=== PATIENT | female | born 1995 | race Caucasian/White ===

== ENCOUNTER 2021-10-23 20:32 | Emergency (ER) | payer OTHER, SELFPAY ==
[2021-10-23 21:03] VITALS: BP 159/88; PULSE 89; RESP 20; TEMP 36.7; O2SAT 100; BMI 31.1
[2021-10-23 21:23] LABS: Appearance Urine UA CLEAR; Bilirubin Urine UA NEGATIVE (NEGATIVE); Color Urine UA YELLOW; Glucose Urine UA NEGATIVE (Negative); Ketones Urine UA TRACE (NEGATIVE); Leukocyte Esterase Urine UA NEGATIVE (NEGATIVE); Nitrite Urine UA NEGATIVE (Negative); Occult Blood Urine UA NEGATIVE (Negative); Protein Urine UA NEGATIVE (Negative); Specific Gravity Urine UA 1.025 (1.000-1.035); Urobilinogen Urine UA 0.2 E.U./dL (0.2)
[2021-10-23 21:24] LABS: pH Urine UA 5.5 (4.5-8.0)
[2021-10-23 21:27] LABS: Pregnancy Test Urine Negative (Negative)
[2021-10-23 21:28] LABS: Add Manual Diff / Slide Review NO; Basophils Absolute Auto 100 /uL (0-100); Basophils Percent Auto 0.9 % (0-2); Eosinophils Absolute Auto 100 /uL (0-450); Eosinophils Percent Auto 1.6 % (2-4); Hematocrit 34.5 % (36-46); Hemoglobin 11.8 g/dL (12.0-16.0); Lymphocytes Absolute Auto 2600 /uL (1100-4500); Lymphocytes Percent Auto 27.4 % (25-40); Mean Corpuscular HGB Conc 34.2 % (30-36); Mean Corpuscular Volume 84.9 fL (80-100); Monocytes Absolute Auto 500 /uL (0-900); Monocytes Percent Auto 5.6 % (3-14); Neutrophils Absolute Auto 6100 /uL (1500-7000); Neutrophils Percent Auto 64.5 % (50-75); Platelet Count 239 X10^3/uL (150-400); Red Blood Cell Count 4.06 X10^6/uL (4.0-5.2); White Blood Cell Count 9.4 X10^3/uL (4.5-11.0)
[2021-10-23 21:32] LABS: Bacteria Urine None Seen; Mucus Urine 1+ (Negative); RBC Urine 0-1/HPF (0-5/HPF); Squamous Epithelial Cell Urine 1-5 /HPF (0-5/HPF); WBC Urine 0-1/HPF (0-5/HPF)
[2021-10-23 21:33] LABS: Alanine Aminotransferase 12 IU/L (<35); Albumin 4.6 g/dL (3.5-5.0); Albumin Globulin Ratio 1.6 (1.0-2.8); Alkaline Phosphatase 71 U/L (38-126); Aspartate Aminotransferase 23 IU/L (14-36); BUN Creatinine Ratio 14.1 (6-22); Bilirubin Total 0.3 mg/dL (0.2-1.3); Blood Urea Nitrogen 10 mg/dL (7-17); Calcium 9.4 mg/dL (8.4-10.2); Carbon Dioxide 27 mmol/L (22-32); Chloride 107 mmol/L (98-107); Culture Indicated Urine Cult Not Indicated; Estimated Glomerular Filt Rate > 60.0 mL/min (>60); Globulin 2.8 g/dL (1.7-4.1); Glucose 95 mg/dL (70-100); HEMOLYSIS < 15 (0-50); Lipase 91 U/L (23-300); Potassium 3.9 mmol/L (3.4-5.1); Sodium 141 mmol/L (137-145); Total Protein 7.4 g/dL (6.3-8.2)
--- NOTE | 2021-10-24 03:15 | DI.CT.S_ITS ---
PROCEDURE: CT ABDOMEN PELVIS W CON INDICATIONS: Right lower quadrant pain TECHNIQUE: After the administration of IV contrast, axial sections were acquired from the lung bases to the pubic symphysis. Coronal and sagittal reformats were performed. For radiation dose reduction, the following was used: automated exposure control, adjustment of mA and/or kV according to patient size. COMPARISON: None. FINDINGS: Image quality: Excellent. Lung bases: There is minimal dependent atelectasis. Heart: Heart is normal in size. ABDOMEN: Liver: No mass lesion. Gallbladder: Within normal limits without gallstones. Biliary ducts: No biliary ductal dilatation. Pancreas: Unremarkable. Spleen: Normal in size. Adrenal Glands: No adrenal nodules. Kidneys and Ureters: No hydronephrosis. Stomach and Bowel: Stomach, small bowel loops, and colon are normal in caliber and wall thickness. No evidence of appendicitis. There is colonic diverticulosis without acute diverticulitis. Peritoneum: No abnormal intraperitoneal fluid. No free air. Ventral Wall: No hernia. Abdominal Nodes: No retroperitoneal or mesenteric adenopathy by size criteria. Vessels: Aorta and inferior vena cava are normal in size. PELVIS: Pelvic Organs: The uterus and ovaries appear within normal size limits for age with small bilateral ovarian follicles noted. Bladder: Unremarkable. Pelvic Nodes: No enlarged lymph nodes. Miscellaneous: No inguinal hernias are seen. Bones: Visualized osseous structures demonstrate no suspicious focal lesions. IMPRESSION: 1. No definite acute intra-abdominal abnormality. Specifically, no evidence of acute appendicitis. 2. Colonic diverticulosis without acute diverticulitis. Concordant with preliminary interpretation. Dictated by: Huan Crowley M.D. on 10/24/2021 at 7:45 Approved by: Huan Crowley M.D. on 10/24/2021 at 7:49
--- NOTE | 2021-10-24 03:16 | ED_ITS ---
HPI - Abdominal Pain General Chief Complaint: Abdominal Pain Stated Complaint: RIGHT SIDE LOWER PAIN Time Seen by Provider: 10/24/21 03:09 Source: patient Mode of arrival: Ambulatory Limitations: no limitations History of Present Illness HPI narrative: This is a 26-year-old female comes in with right lower quadrant pain that started about 2 hours prior to arrival. Patient states anterior she does not have any sensation in her flank. She denies any fevers or chills. She has had some nausea and vomiting. She states the pain was about 8/10 it is now decreased to more tolerable level of 5/10. She has had some diarrhea yesterday but no black or bloody stools. She had some discomfort in her abdomen when she urinates but denies dysuria urgency or frequency. She has not any vaginal bleeding or discharge. She does have a history of ovarian cyst. She states this might be similar but she is not sure. She has had prior ovarian cyst removed, as well as history endometriosis. She took some Tylenol prior to arrival. She denies allergies to drugs. Related Data Previous Rx's Medication Instructions Recorded meloxicam 7.5 mg tablet 7.5 mg PO BID PRN #10 tab 10/24/21 Allergies Allergy/AdvReac Type Severity Reaction Status Date / Time Penicillins Allergy Verified 10/24/21 03:24 Review of Systems Review of Systems ROS Unobtainable: All systems reviewed & are unremarkable except as noted in HPI and below Exam Narrative Exam Narrative: GENERAL: Alert and oriented x three, female in [id number] distress. HEENT: Head normocephalic, atraumatic, EOMI, pupils reactive, face symmetric, moist mucous membranes NECK: Supple, full range of motion CARDIOVASCULAR: Regular rate and rhythm without murmurs, rubs or gallops. RESPIRATORY: Breath sounds equal bilaterally, no wheezes rales or rhonchi. ABDOMEN: Soft, positive for right lower quadrant tenderness. Normoactive bowel sounds all 4 quadrants. No guarding, positive for rebound, no rigidity, no mass : No CVA tenderness EXTREMITIES: Normal range of motion. Neurovascularly intact NEUROLOGICAL: Cranial nerves II through XII grossly intact. Moving all extremities SKIN: Warm, dry, no petechiae, no rashes or lesions. Initial Vital Signs Initial Vital Signs: Vital Signs Temperature 98.1 F 10/23/21 21:03 Pulse Rate 89 10/23/21 21:03 Respiratory Rate 20 10/23/21 21:03 Blood Pressure 159/88 H 10/23/21 21:03 Pulse Oximetry 100 10/23/21 21:03 Course Orders Ordered: ED Orders 10/24/21 03:15 CT abdomen pelvis w con Stat Discontinued Medications Sodium Chloride (Normal Saline 0.9%) 1,000 mls @ 1,000 mls/hr IV BOLUS ONE Stop: 10/24/21 04:14 Last Infusion: 10/24/21 04:56 Dose: 0 mls/hr Documented by: Admin: 10/24/21 03:24 Dose: 1,000 mls/hr Documented by: CARMEL Ketorolac Tromethamine (Ketorolac 30 Mg/Ml Vial) 30 mg IV NOW ONE Stop: 10/24/21 03:16 Last Admin: 10/24/21 03:24 Dose: 30 mg Documented by: CARMEL Reevaluation(s) Reevaluation #1: Patient did have improvement with Toradol. We reviewed her findings today including her CT imaging. Discussed that she could have an ovarian cyst with her improvement in pain even before she had pain medication is vision for torsion is quite low. She defers having a pelvic ultrasound today and would like to return home Vital Signs Vital signs: Vital Signs - 8 hr 10/24/21 03:32 10/24/21 05:03 Temperature 97.8 F Pulse Rate 68 74 Respiratory Rate 16 16 Blood Pressure 114/71 114/58 L Pulse Oximetry 98 98 MDM - Abdominal Pain Lab Data Result diagrams: 10/23/21 21:14 10/23/21 21:14 Labs: Lab Results 10/23/21 10/23/21 10/23/21 Range/Units 21:14 21:14 21:14 WBC 9.4 (4.5-11.0) X10^3/uL RBC 4.06 (4.0-5.2) X10^6/uL Hgb 11.8 L (12.0-16.0) g/dL Hct 34.5 L (36-46) % MCV 84.9 (80-100) fL MCH 29.0 (26-34) PG MCHC 34.2 (30-36) % RDW 14.0 (11.6-14.8) % Plt Count 239 (150-400) X10^3/uL Neut % (Auto) 64.5 (50-75) % Lymph % (Auto) 27.4 (25-40) % [place] % (Auto) 5.6 (3-14) % Eos % (Auto) 1.6 L (2-4) % Baso % (Auto) 0.9 (0-2) % Neut # (Auto) 6100 (7366-9242) /uL Lymph # (Auto) 2600 (4165-4258) /uL [place] # (Auto) 500 (0-900) /uL Eos # (Auto) 100 (0-450) /uL Baso # (Auto) 100 (0-100) /uL Sodium (137-145) mmol/L Potassium (3.4-5.1) mmol/L Chloride (98-107) mmol/L Carbon Dioxide (22-32) mmol/L BUN (7-17) mg/dL Creatinine (0.52-1.04) mg/dL Estimated GFR (>60) mL/min BUN/Creatinine Ratio (6-22) Glucose (70-100) mg/dL Calcium (8.4-10.2) mg/dL Total Bilirubin (0.2-1.3) mg/dL AST (14-36) IU/L ALT (<35) IU/L Alkaline Phosphatase (38-126) U/L Total Protein (6.3-8.2) g/dL Albumin (3.5-5.0) g/dL Globulin (1.7-4.1) g/dL Albumin/Globulin Ratio (1.0-2.8) Lipase (23-300) U/L Urine Color Yellow Urine Appearance Clear Urine pH 5.5 (4.5-8.0) Ur Specific [place] 1.025 (1.000-1.035) Urine Protein Negative (Negative) Urine Glucose (UA) Negative (Negative) g/dL Urine Ketones Trace H (NEGATIVE) Urine Occult Blood Negative (Negative) Urine Nitrate Negative (Negative) Urine Bilirubin Negative (NEGATIVE) Urine Urobilinogen 0.2 (0.2) E.U./dL Ur Leukocyte Esterase Negative (NEGATIVE) Urine RBC 0-1/hpf (0-5/HPF) Urine WBC 0-1/hpf (0-5/HPF) Ur Squamous Epith Cells 1-5 /hpf (0-5/HPF) Urine Bacteria None seen (None) Urine Mucus 1+ H (Negative) Ur Culture Indicated? Cult not indicated Urine Test Negative (Negative) 10/23/21 Range/Units 21:14 WBC (4.5-11.0) X10^3/uL RBC (4.0-5.2) X10^6/uL Hgb (12.0-16.0) g/dL Hct (36-46) % MCV (80-100) fL MCH (26-34) PG MCHC (30-36) % RDW (11.6-14.8) % Plt Count (150-400) X10^3/uL Neut % (Auto) (50-75) % Lymph % (Auto) (25-40) % [place] % (Auto) (3-14) % Eos % (Auto) (2-4) % Baso % (Auto) (0-2) % Neut # (Auto) (8365-3676) /uL Lymph # (Auto) (2445-5035) /uL [place] # (Auto) (0-900) /uL Eos # (Auto) (0-450) /uL Baso # (Auto) (0-100) /uL Sodium 141 (137-145) mmol/L Potassium 3.9 (3.4-5.1) mmol/L Chloride 107 (98-107) mmol/L Carbon Dioxide 27 (22-32) mmol/L BUN 10 (7-17) mg/dL Creatinine 0.71 (0.52-1.04) mg/dL Estimated GFR > 60.0 (>60) mL/min BUN/Creatinine Ratio 14.1 (6-22) Glucose 95 (70-100) mg/dL Calcium 9.4 (8.4-10.2) mg/dL Total Bilirubin 0.3 (0.2-1.3) mg/dL AST 23 (14-36) IU/L ALT 12 (<35) IU/L Alkaline Phosphatase 71 (38-126) U/L Total Protein 7.4 (6.3-8.2) g/dL Albumin 4.6 (3.5-5.0) g/dL Globulin 2.8 (1.7-4.1) g/dL Albumin/Globulin Ratio 1.6 (1.0-2.8) Lipase 91 (23-300) U/L Urine Color Urine Appearance Urine pH (4.5-8.0) Ur Specific [place] (1.000-1.035) Urine Protein (Negative) Urine Glucose (UA) (Negative) g/dL Urine Ketones (NEGATIVE) Urine Occult Blood (Negative) Urine Nitrate (Negative) Urine Bilirubin (NEGATIVE) Urine Urobilinogen (0.2) E.U./dL Ur Leukocyte Esterase (NEGATIVE) Urine RBC (0-5/HPF) Urine WBC (0-5/HPF) Ur Squamous Epith Cells (0-5/HPF) Urine Bacteria (None) Urine Mucus (Negative) Ur Culture Indicated? Urine Test (Negative) Imaging Data CT scan - abdomen/pelvis: Radiologist's Impression: Rad read shows no evidence of colitis, diverticulitis, bowel obstruction, obstructive uropathy acute appendicitis. Trace free fluid within the pelvis. Follicular activity within bilateral ovaries. Uterus and adnexa are normal. Normal-appearing appendix. MDM Narrative Medical decision making narrative: This is a 26-year-old who comes in with acute right lower quadrant pain. Patient is tender on exam concerning for appendicitis and still has her appendi x. Labs reassuring. Urine does not show acute changes. CT abdomen pelvis shows no acute changes other than typical follicular changes. Of patients with improvement on exam even prior to having pain medication and feels much better. Discussed that. Cysts and ovarian torsion are on the differential but with her improvement she defers pelvic ultrasound which I think is appropriate but plan to have her return if any worsening or persistent symptoms for additional workup. Discharge Plan Departure Patient Disposition: Home Clinical Impression: Abdominal pain Instructions: DI for Abdominal Pain-Adult Activity Restrictions/Additional Instructions: Follow-up with your physician for recheck if your symptoms not improving. Your labs and imaging today are reassuring. You may continue take Tylenol and/or ibuprofen as needed for pain. Prescription sent to [facility] in [place]. Please return for fevers, rapidly worsening pain, passing out, persistent vomiting, black or bloody stools, difficulty with urination or other new or concerning symptoms. Prescriptions: New meloxicam 7.5 mg tablet 7.5 mg PO BID PRN (Reason: pain) Qty: 10 0RF
--- NOTE | 2021-10-24 03:18 | ED_ITS ---
HPI - Pediatric GI General Chief Complaint: Abdominal Pain Stated Complaint: RIGHT SIDE LOWER PAIN Time Seen by Provider: 10/24/21 03:09 Source: patient Mode of arrival: Ambulatory Limitations: no limitations History of Present Illness HPI narrative: This is a Related Data Previous Rx's Medication Instructions Recorded meloxicam 7.5 mg tablet 7.5 mg PO BID PRN #10 tab 10/24/21 Allergies Allergy/AdvReac Type Severity Reaction Status Date / Time Penicillins Allergy Verified 10/24/21 03:24 Pediatric Exam Initial Vital Signs Initial Vital Signs: Vital Signs Temperature 98.1 F 10/23/21 21:03 Pulse Rate 89 10/23/21 21:03 Respiratory Rate 20 10/23/21 21:03 Blood Pressure 159/88 H 10/23/21 21:03 Pulse Oximetry 100 10/23/21 21:03 Course Orders Ordered: ED Orders 10/23/21 21:14 Complete Blood Count AUTO DIFF Stat Comprehensive Metabolic Panel Stat Lipase Stat Test Urine Stat Urinalysis and Microscopic Stat 10/24/21 03:15 CT abdomen pelvis w con Stat Discontinued Medications Sodium Chloride (Normal Saline 0.9%) 1,000 mls @ 1,000 mls/hr IV BOLUS ONE Stop: 10/24/21 04:14 Last Admin: 10/24/21 03:24 Dose: 1,000 mls/hr Documented by: CARMEL Ketorolac Tromethamine (Ketorolac 30 Mg/Ml Vial) 30 mg IV NOW ONE Stop: 10/24/21 03:16 Last Admin: 10/24/21 03:24 Dose: 30 mg Documented by: CARMEL Vital Signs Vital signs: Vital Signs - 8 hr 10/23/21 21:03 10/24/21 03:32 Temperature 98.1 F Pulse Rate 89 68 Respiratory Rate 20 16 Blood Pressure 159/88 H 114/71 Pulse Oximetry 100 98 Medical Decision Making Lab Data Result diagrams: 10/23/21 21:14 10/23/21 21:14 Labs: Lab Results 10/23/21 10/23/21 10/23/21 Range/Units 21:14 21:14 21:14 WBC 9.4 (4.5-11.0) X10^3/uL RBC 4.06 (4.0-5.2) X10^6/uL Hgb 11.8 L (12.0-16.0) g/dL Hct 34.5 L (36-46) % MCV 84.9 (80-100) fL MCH 29.0 (26-34) PG MCHC 34.2 (30-36) % RDW 14.0 (11.6-14.8) % Plt Count 239 (150-400) X10^3/uL Neut % (Auto) 64.5 (50-75) % Lymph % (Auto) 27.4 (25-40) % [place] % (Auto) 5.6 (3-14) % Eos % (Auto) 1.6 L (2-4) % Baso % (Auto) 0.9 (0-2) % Neut # (Auto) 6100 (0580-8085) /uL Lymph # (Auto) 2600 (2775-8451) /uL [place] # (Auto) 500 (0-900) /uL Eos # (Auto) 100 (0-450) /uL Baso # (Auto) 100 (0-100) /uL Sodium (137-145) mmol/L Potassium (3.4-5.1) mmol/L Chloride (98-107) mmol/L Carbon Dioxide (22-32) mmol/L BUN (7-17) mg/dL Creatinine (0.52-1.04) mg/dL Estimated GFR (>60) mL/min BUN/Creatinine Ratio (6-22) Glucose (70-100) mg/dL Calcium (8.4-10.2) mg/dL Total Bilirubin (0.2-1.3) mg/dL AST (14-36) IU/L ALT (<35) IU/L Alkaline Phosphatase (38-126) U/L Total Protein (6.3-8.2) g/dL Albumin (3.5-5.0) g/dL Globulin (1.7-4.1) g/dL Albumin/Globulin Ratio (1.0-2.8) Lipase (23-300) U/L Urine Color Yellow Urine Appearance Clear Urine pH 5.5 (4.5-8.0) Ur Specific [place] 1.025 (1.000-1.035) Urine Protein Negative (Negative) Urine Glucose (UA) Negative (Negative) g/dL Urine Ketones Trace H (NEGATIVE) Urine Occult Blood Negative (Negative) Urine Nitrate Negative (Negative) Urine Bilirubin Negative (NEGATIVE) Urine Urobilinogen 0.2 (0.2) E.U./dL Ur Leukocyte Esterase Negative (NEGATIVE) Urine RBC 0-1/hpf (0-5/HPF) Urine WBC 0-1/hpf (0-5/HPF) Ur Squamous Epith Cells 1-5 /hpf (0-5/HPF) Urine Bacteria None seen (None) Urine Mucus 1+ H (Negative) Ur Culture Indicated? Cult not indicated Urine Test Negative (Negative) 10/23/21 Range/Units 21:14 WBC (4.5-11.0) X10^3/uL RBC (4.0-5.2) X10^6/uL Hgb (12.0-16.0) g/dL Hct (36-46) % MCV (80-100) fL MCH (26-34) PG MCHC (30-36) % RDW (11.6-14.8) % Plt Count (150-400) X10^3/uL Neut % (Auto) (50-75) % Lymph % (Auto) (25-40) % [place] % (Auto) (3-14) % Eos % (Auto) (2-4) % Baso % (Auto) (0-2) % Neut # (Auto) (8652-6831) /uL Lymph # (Auto) (1938-0957) /uL [place] # (Auto) (0-900) /uL Eos # (Auto) (0-450) /uL Baso # (Auto) (0-100) /uL Sodium 141 (137-145) mmol/L Potassium 3.9 (3.4-5.1) mmol/L Chloride 107 (98-107) mmol/L Carbon Dioxide 27 (22-32) mmol/L BUN 10 (7-17) mg/dL Creatinine 0.71 (0.52-1.04) mg/dL Estimated GFR > 60.0 (>60) mL/min BUN/Creatinine Ratio 14.1 (6-22) Glucose 95 (70-100) mg/dL Calcium 9.4 (8.4-10.2) mg/dL Total Bilirubin 0.3 (0.2-1.3) mg/dL AST 23 (14-36) IU/L ALT 12 (<35) IU/L Alkaline Phosphatase 71 (38-126) U/L Total Protein 7.4 (6.3-8.2) g/dL Albumin 4.6 (3.5-5.0) g/dL Globulin 2.8 (1.7-4.1) g/dL Albumin/Globulin Ratio 1.6 (1.0-2.8) Lipase 91 (23-300) U/L Urine Color Urine Appearance Urine pH (4.5-8.0) Ur Specific [place] (1.000-1.035) Urine Protein (Negative) Urine Glucose (UA) (Negative) g/dL Urine Ketones (NEGATIVE) Urine Occult Blood (Negative) Urine Nitrate (Negative) Urine Bilirubin (NEGATIVE) Urine Urobilinogen (0.2) E.U./dL Ur Leukocyte Esterase (NEGATIVE) Urine RBC (0-5/HPF) Urine WBC (0-5/HPF) Ur Squamous Epith Cells (0-5/HPF) Urine Bacteria (None) Urine Mucus (Negative) Ur Culture Indicated? Urine Test (Negative) Discharge Plan Departure Patient Disposition: Home Clinical Impression: Abdominal pain Instructions: DI for Abdominal Pain-Adult Activity Restrictions/Additional Instructions: Follow-up with your physician for recheck if your symptoms not improving. Your labs and imaging today are reassuring. You may continue take Tylenol and/or ibuprofen as needed for pain. Prescription sent to [facility]. Please return for fevers, rapidly worsening pain, passing out, persistent vomiting, black or bloody stools, difficulty with urination or other new or concerning symptoms. Prescriptions: New meloxicam 7.5 mg tablet 7.5 mg PO BID PRN (Reason: pain) Qty: 10 0RF
[2021-10-24] MEDS: SODIUM CHLORIDE 0.9% 1,000 ML 1000 ML IV (03:24)
[2021-10-24] MEDS: KETOROLAC 30 MG/ML VIAL IV (03:24)
[2021-10-24 03:32] VITALS: BP 114/71; PULSE 68; RESP 16; O2SAT 98
[2021-10-24 05:03] VITALS: BP 114/58; PULSE 74; RESP 16; TEMP 36.6; O2SAT 98
== END 2021-10-24 04:50 | disposition home or self-care (01) ==
PROVIDERS: Emergency Provider Emergency Medicine
DX: R10.31 Right lower quadrant pain (principal)
CPT/HCPCS: 74177; 80053; 81001; 81025; 83690; 85025; 96361; 96374; 99284; J1885; Q9967

== ENCOUNTER 2022-04-13 15:36 | Emergency (ER) | payer OTHER, SELFPAY ==
[2022-04-13 15:42] VITALS: BP 127/78; PULSE 87; RESP 18; TEMP 36.9; O2SAT 97; BMI 31.1
--- NOTE | 2022-04-13 16:46 | DI.US.S_ITS ---
PROCEDURE: US PELVIC COMPLETE INDICATIONS: in process, concern for right sided ovarian pain TECHNIQUE: Real-time scanning was performed of the pelvic organs, with image documentation. Additional endovaginal scanning was necessary due to incomplete visualization of the adnexal and endometrial structures by transabdominal scanning. COMPARISON: None. FINDINGS: Uterus: Uterus is anteverted and normal in size at 7.1 x 4.5 x 6.2 cm. The myometrium is homogeneous. No discrete uterine fibroid is seen. The endometrium measures 4.9 mm combined thickness. No intrauterine gestational sac is seen. No gross endometrial mass or fluid is noted. Ovaries: The right ovary measures 2.5 x 1.6 x 1.7 cm. The left ovary measures 3.8 x 1.2 x 2.2 cm. 2.2 x 1.2 x 0.9 cm hypoechoic structure within left ovary is seen without internal vascularity. Less than 12 follicles can be seen in each ovary. No adnexal masses are seen. Other: No pathologic free abdominal or pelvic fluid. IMPRESSION: 1. No intrauterine gestation is seen. No endometrial mass or fluid. 2. Possible corpus luteum within left ovary measures 2.2 x 1.2 x 0.9 cm in size. No solid appearing ovarian lesion. Normal appearing right ovary. We strive to produce accurate, complete, and clear reports of imaging services. To assist us in improving patient care, this report was composed using standard report templates and voice recognition software. Therefore, it may contain abnormal punctuation, insertions and/or omissions. Occasional wrong-word or sound-alike substitutions may occur. Though we review the report and make efforts to correct it, we do recommend that the report be read carefully in proper context to recognize any text inaccuracies. Dictated by: Stone Urbina M.D. on 04/13/2022 at 16:46 Approved by: Stone Urbina M.D. on 04/13/2022 at 16:49
[2022-04-13 16:49] LABS: Add Manual Diff / Slide Review NO; Basophils Absolute Auto 100 /uL (0-100); Eosinophils Absolute Auto 100 /uL (0-450); Eosinophils Percent Auto 0.9 % (2-4); Hematocrit 34.8 % (36-46); Hemoglobin 11.9 g/dL (12.0-16.0); Lymphocytes Absolute Auto 1500 /uL (1100-4500); Lymphocytes Percent Auto 16.6 % (25-40); Mean Corpuscular HGB Conc 34.3 % (30-36); Mean Corpuscular Hemoglobin 29.2 PG (26-34); Mean Corpuscular Volume 85.2 fL (80-100); Monocytes Absolute Auto 400 /uL (0-900); Monocytes Percent Auto 4.2 % (3-14); Neutrophils Absolute Auto 7100 /uL (1500-7000); Neutrophils Percent Auto 77.3 % (50-75); Platelet Count 221 X10^3/uL (150-400); Red Blood Cell Count 4.09 X10^6/uL (4.0-5.2); Red Cell Distribution Width 13.7 % (11.6-14.8); White Blood Cell Count 9.2 X10^3/uL (4.5-11.0)
[2022-04-13] MEDS: LACTATED RINGERS 1,000 ML 1000 ML IV (17:01)
[2022-04-13] MEDS: ACETAMINOPHEN 325 MG TABLET 975 MG PO (17:01)
[2022-04-13] MEDS: ONDANSETRON 4 MG/2 ML INJ IV (17:01)
[2022-04-13 17:02] LABS: Alanine Aminotransferase 14 IU/L (<35); Albumin 4.5 g/dL (3.5-5.0); Albumin Globulin Ratio 1.5 (1.0-2.8); Alkaline Phosphatase 57 U/L (38-126); Aspartate Aminotransferase 23 IU/L (14-36); BUN Creatinine Ratio 12.3 (6-22); Bilirubin Total 0.2 mg/dL (0.2-1.3); Blood Urea Nitrogen 9 mg/dL (7-17); Calcium 8.8 mg/dL (8.4-10.2); Carbon Dioxide 23 mmol/L (22-32); Chloride 106 mmol/L (98-107); Estimated Glomerular Filt Rate > 60 mL/min (>60); Glucose 89 mg/dL (70-100); HEMOLYSIS < 15 (0-50); Potassium 4.1 mmol/L (3.4-5.1); Sodium 138 mmol/L (137-145); Total Protein 7.5 g/dL (6.3-8.2)
--- NOTE | 2022-04-13 17:04 | ED.FEMALEGU ---
HPI - Female Genitourinary <SONG Kinney - Last Filed: 04/13/22 19:50> General Chief complaint: Urogenital-Female Stated complaint: Rt side pain, Vomiting Time Seen by Provider: 04/13/22 16:40 Source: patient Mode of arrival: Ambulatory History of Present Illness HPI Narrative: This is a 27-year-old female who is a who presents to the emergency department complaining of increased cramping and vaginal bleeding three days following taking the pill. Patient states that she electively to the pill three days ago for an unwanted which is approximately five weeks today. She states she has a history of depression and is currently in therapy for this and this would have compromised her progress. Patient is one year status post vaginal delivery without complications of her son. Patient states that she took one of two pills starting on the and the 2nd of two pills on the 11 of April, today she took Zofran at 0900 hours and ibuprofen 1000 mg at noon and still complains of nausea and pelvic cramping with vaginal bleeding. She states that she is having clots, she denies any weakness, lightheadedness or headache, denies any fever, states that her cramping is only on the right side and she was concerned about possible ectopic . Patient is a nonsmoker, she is active in the , she is , denies any abnormal vaginal discharge other than blood and denies any recent fever, vomiting, diarrhea or other symptom. She denies any dysuria or flank pain. Related Data Previous Rx's Medication Instructions Recorded meloxicam 7.5 mg tablet 7.5 mg PO BID PRN pain #10 tabs 10/24/21 hydrocodone 5 mg-acetaminophen 325 1 tab PO DAILY PRN pain #10 tabs 04/13/22 mg tablet ondansetron 4 mg disintegrating 4 mg PO Q8H #10 tabs 04/13/22 tablet Allergies Allergy/AdvReac Type Severity Reaction Status Date / Time Penicillins Allergy Verified 04/13/22 15:47 Review of Systems <SONG Kinney - Last Filed: 04/13/22 19:50> Review of Systems Narrative: General: denies fever, chills, malaise, sweats, fatigue Head/Neck: denies headache, neck pain, dizziness Eyes: denies visual changes, eye pain Cardio: denies chest pain, palpitations, edema Respiratory: denies dyspnea, cough, orthopnea GI: denies abdominal pain, nausea, vomiting, or diarrhea : denies dysuria, hematuria, urinary retention, frequency or incontinence [employer]: Vaginal bleeding which is not as heavy as it was yesterday, pelvic cramping MSK: denies joint pain, muscle weakness Skin: denies rash, itching, skin lesions or other Neuro: denies numbness, tingling Patient History <SONG Kinney - Last Filed: 04/13/22 19:50> Substance Use Type: does not use Exam <SONG Kinney - Last Filed: 04/13/22 19:50> Narrative Exam Narrative: Independently reviewed vitals signs and nursing notes. General: cooperative, comfortable, in no acute distress, well groomed Head: atraumatic, symmetrical facial expressions Neck: supple Eyes: equal round and reactive, EOMI, conjunctiva normal Nose: nares patent, no rhinorrhea Mouth/Throat: moist mucus membranes Cardiovascular: regular rate and rhythm, no peripheral edema, warm extremities no tachycardia, Respiratory: normal effort, able to speak in complete sentences, no audible wheezing, stridor, or rales. No retractions or tachypnea. GI: abdomen soft, nondistended, no masses, no exquisite tenderness with exam, without guarding or rebound. Mild tenderness over her right ovary to palpation, no other tenderness. MSK: moves all extremities, neurovascularly intact, no weakness, normal tone Skin: brisk capillary refill, no rash, no erythema, no pallor Neuro: normal speech and cognition, A&O x3 Psych: mental status is grossly normal, congruent mood, normal affect, pleasant and cooperative Initial Vital Signs Initial Vital Signs: Vital Signs Temperature 98.4 F 04/13/22 15:42 Pulse Rate 87 04/13/22 15:42 Respiratory Rate 18 04/13/22 15:42 Blood Pressure 127/78 04/13/22 15:42 Pulse Oximetry 97 04/13/22 15:42 Oxygen Delivery Method 04/13/22 15:42 <Slime Gallardo DO - Last Filed: 04/14/22 07:53> Initial Vital Signs Initial Vital Signs: Vital Signs Temperature 98.4 F 04/13/22 15:42 Pulse Rate 87 04/13/22 15:42 Respiratory Rate 18 04/13/22 15:42 Blood Pressure 127/78 04/13/22 15:42 Pulse Oximetry 97 04/13/22 15:42 Oxygen Delivery Method 04/13/22 15:42 Course <SONG Kinney - Last Filed: 04/13/22 19:50> Orders Ordered: Discontinued Medications Acetaminophen (Acetaminophen 325 Mg Tablet) 975 mg PO NOW ONE Stop: 04/13/22 16:47 Last Admin: 04/13/22 17:01 Dose: 975 mg Documented By: BS Lactated Ringer's (Lactated Ringers) 1,000 mls @ 1,000 mls/hr IV BOLUS ONE Stop: 04/13/22 17:45 Last Infusion: 04/13/22 19:24 Dose: 0 mls/hr Documented By: Admin: 04/13/22 17:01 Dose: 1,000 mls/hr Documented By: YVES Ondansetron HCl (Ondansetron 4 Mg/2 Ml Inj) 4 mg IV NOW ONE Stop: 04/13/22 16:47 Last Admin: 04/13/22 17:01 Dose: 4 mg Documented By: YVES Oxycodone HCl (Oxycodone Ir 5 Mg Tablet) 5 mg PO NOW ONE Stop: 04/13/22 18:21 Last Admin: 04/13/22 18:43 Dose: 5 mg Documented By: CTS Vital Signs Vital signs: Vital Signs - 8 hr 04/13/22 15:42 04/13/22 19:38 Temperature 98.4 F Pulse Rate 87 76 Respiratory Rate 18 16 Blood Pressure 127/78 136/74 Pulse Oximetry 97 Oxygen Delivery Method Room Air <Slime Gallardo DO - Last Filed: 04/14/22 07:53> Orders Ordered: Discontinued Medications Acetaminophen (Acetaminophen 325 Mg Tablet) 975 mg PO NOW ONE Stop: 04/13/22 16:47 Last Admin: 04/13/22 17:01 Dose: 975 mg Documented By: BS Lactated Ringer's (Lactated Ringers) 1,000 mls @ 1,000 mls/hr IV BOLUS ONE Stop: 04/13/22 17:45 Last Infusion: 04/13/22 19:24 Dose: 0 mls/hr Documented By: Admin: 04/13/22 17:01 Dose: 1,000 mls/hr Documented By: YVES Ondansetron HCl (Ondansetron 4 Mg/2 Ml Inj) 4 mg IV NOW ONE Stop: 04/13/22 16:47 Last Admin: 04/13/22 17:01 Dose: 4 mg Documented By: YVES Oxycodone HCl (Oxycodone Ir 5 Mg Tablet) 5 mg PO NOW ONE Stop: 04/13/22 18:21 Last Admin: 04/13/22 18:43 Dose: 5 mg Documented By: HECTOR Vital Signs Vital signs: Vital Signs - 8 hr 04/13/22 15:42 04/13/22 19:38 Temperature 98.4 F Pulse Rate 87 76 Respiratory Rate 18 16 Blood Pressure 127/78 136/74 Pulse Oximetry 97 Oxygen Delivery Method Room Air MDM - Female Genitourinary <Elissa Shaw [facility] - Last Filed: 04/13/22 19:50> Lab Data Result diagrams: 04/13/22 16:20 04/13/22 16:20 Labs: Lab Results 04/13/22 04/13/22 04/13/22 Range/Units 16:20 16:20 16:20 WBC 9.2 (4.5-11.0) X10^3/uL RBC 4.09 (4.0-5.2) X10^6/uL Hgb 11.9 L (12.0-16.0) g/dL Hct 34.8 L (36-46) % MCV 85.2 (80-100) fL MCH 29.2 (26-34) PG MCHC 34.3 (30-36) % RDW 13.7 (11.6-14.8) % Plt Count 221 (150-400) X10^3/uL Neut % (Auto) 77.3 H (50-75) % Lymph % (Auto) 16.6 L (25-40) % [place] % (Auto) 4.2 (3-14) % Eos % (Auto) 0.9 L (2-4) % Baso % (Auto) 1.0 (0-2) % Neut # (Auto) 7100 H (1279-2381) /uL Lymph # (Auto) 1500 (2678-4357) /uL [place] # (Auto) 400 (0-900) /uL Eos # (Auto) 100 (0-450) /uL Baso # (Auto) 100 (0-100) /uL Sodium 138 (137-145) mmol/L Potassium 4.1 (3.4-5.1) mmol/L Chloride 106 (98-107) mmol/L Carbon Dioxide 23 (22-32) mmol/L BUN 9 (7-17) mg/dL Creatinine 0.73 (0.52-1.04) mg/dL Estimated GFR > 60 (>60) mL/min BUN/Creatinine Ratio 12.3 (6-22) Glucose 89 (70-100) mg/dL Calcium 8.8 (8.4-10.2) mg/dL Magnesium (1.6-2.3) mg/dL Total Bilirubin 0.2 (0.2-1.3) mg/dL AST 23 (14-36) IU/L ALT 14 (<35) IU/L Alkaline Phosphatase 57 (38-126) U/L Total Protein 7.5 (6.3-8.2) g/dL Albumin 4.5 (3.5-5.0) g/dL Globulin 3.0 (1.7-4.1) g/dL Albumin/Globulin Ratio 1.5 (1.0-2.8) HCG, Quant 4234 mIU/mL Urine RBC (0-5/HPF) Urine WBC (0-5/HPF) Ur Squamous Epith Cells (0-5/HPF) Ur Transition Epith Cell (0-5/HPF) Urine Bacteria (None) Ur Culture Indicated? Micro UA Comment Blood Type Cancelled Antibody Screen 04/13/22 04/13/22 04/13/22 Range/Units 16:20 16:20 16:48 WBC (4.5-11.0) X10^3/uL RBC (4.0-5.2) X10^6/uL Hgb (12.0-16.0) g/dL Hct (36-46) % MCV (80-100) fL MCH (26-34) PG MCHC (30-36) % RDW (11.6-14.8) % Plt Count (150-400) X10^3/uL Neut % (Auto) (50-75) % Lymph % (Auto) (25-40) % [place] % (Auto) (3-14) % Eos % (Auto) (2-4) % Baso % (Auto) (0-2) % Neut # (Auto) (4815-7462) /uL Lymph # (Auto) (1142-1309) /uL [place] # (Auto) (0-900) /uL Eos # (Auto) (0-450) /uL Baso # (Auto) (0-100) /uL Sodium (137-145) mmol/L Potassium (3.4-5.1) mmol/L Chloride (98-107) mmol/L Carbon Dioxide (22-32) mmol/L BUN (7-17) mg/dL Creatinine (0.52-1.04) mg/dL Estimated GFR (>60) mL/min BUN/Creatinine Ratio (6-22) Glucose (70-100) mg/dL Calcium (8.4-10.2) mg/dL Magnesium 1.6 (1.6-2.3) mg/dL Total Bilirubin (0.2-1.3) mg/dL AST (14-36) IU/L ALT (<35) IU/L Alkaline Phosphatase (38-126) U/L Total Protein (6.3-8.2) g/dL Albumin (3.5-5.0) g/dL Globulin (1.7-4.1) g/dL Albumin/Globulin Ratio (1.0-2.8) HCG, Quant mIU/mL Urine RBC >100/hpf H (0-5/HPF) Urine WBC 10-30/hpf H (0-5/HPF) Ur Squamous Epith Cells 1-5 /hpf (0-5/HPF) Ur Transition Epith Cell 1-5/hpf (0-5/HPF) Urine Bacteria Few (2-10) H (None) Ur Culture Indicated? Culture not indicate Micro UA Comment Cx ordered Blood Type O Positive Antibody Screen Negative Urine Dip Bedside Urine Glucose Negative Bedside Urine Bilirubin - Negative Bedside Urine Ketone - Negative Urine Specific [place] 1.025 Bedside Urine Occult Blood +++ Bedside Urine pH 6.0 Bedside Urine Protein + 30 Bedside Urine Urobilinogen - Negative Bedside Urine Nitrite - Negative Bedside Urine Leukocytes +/- 15 Esterase Imaging Data US - ED CASE MANAGER: Radiologist's Impression: PROCEDURE:? US PELVIC COMPLETE ? INDICATIONS:? in process, concern for right sided ovarian pain ? TECHNIQUE:? Real-time scanning was performed of the pelvic organs, with image documentation.? Additional endovaginal scanning was necessary due to incomplete visualization of the adnexal and endometrial structures by transabdominal scanning.? ? COMPARISON:? None. ? FINDINGS:? ?? Uterus:? Uterus is anteverted and normal in size at 7.1 x 4.5 x 6.2 cm. The myometrium is homogeneous.? No discrete uterine fibroid is seen.? The endometrium measures 4.9 mm combined thickness.? No intrauterine gestational sac is seen.? No gross endometrial mass or fluid is noted. ? Ovaries:? The right ovary measures 2.5 x 1.6 x 1.7 cm.? The left ovary measures 3.8 x 1.2 x 2.2 cm.? 2.2 x 1.2 x 0.9 cm hypoechoic structure within left ovary is seen without internal vascularity.? Less than 12 follicles can be seen in each ovary.? No adnexal masses are seen. ? Other:? No pathologic free abdominal or pelvic fluid. ? ? IMPRESSION:? 1. No intrauterine gestation is seen.? No endometrial mass or fluid.? 2. Possible corpus luteum within left ovary measures 2.2 x 1.2 x 0.9 cm in size.? No solid appearing ovarian lesion.? Normal appearing right ovary. ? We strive to produce accurate, complete, and clear reports of imaging services. To assist us in improving patient care, this report was composed using standard report templates and voice recognition software. Therefore, it may contain abnormal punctuation, insertions and/or omissions. Occasional wrong-word or sound-alike substitutions may occur. Though we review the report and make efforts to correct it, we do recommend that the report be read carefully in proper context to recognize any text inaccuracies. ? ? Dictated by: Stone Urbina M.D. on 04/13/2022 at 16:46 ? ? Approved by: Stone Urbina M.D. on 04/13/2022 at 16:49 ? MDM Narrative Medical decision making narrative: This is a 27 year female who presents to the emergency department after a medical therapeutic which she started one of two pills for on 04/10/2022, took the 2nd tab on 04/11/2022 and presents to the emergency department complaining of increased pelvic cramping and right-sided pain in her abdomen with vaginal bleeding. She endorses some nausea but denies any vomiting, states that she is five weeks and has a history of depression which he is currently seeing a therapist for an undergoing treatment for but as a family decision they decided it was not the right time for her to be so they elected to have a therapeutic at this time. Patient is a , her hCG in the emergency department today was 4234 without any priors to compare to, patient received these medications via a prescriber online. She does not have any anemia, her hemoglobin and hematocrit are stable compared with her priors at 11.9 and 34.8, no leukocytosis, no electrolyte abnormalities or elevated liver enzymes. Patient had a urine sample with blood, some leukocytes, and a few bacteria this is all likely contaminant as she denies any dysuria or flank pain, denies any fever or chills. Patient came in for concern about right-sided pelvic pain, states that she is been having clots and has been bleeding but not heavily. Her pelvic ultrasound today does not show any intrauterine gestation, no endometrial mass or fluid, no pathologic free abdominal or pelvic fluid, possible corpus luteum in the left ovary measuring 2.2 x 1.2 x 0.9 cm in size no solid appearing ovarian lesion, normal appearing right ovary. These results were shared with the patient, she was given hydrocodone and 1 L of normal saline with Zofran in the emergency department for comfort. States that she is been vomiting and has not been able to keep anything down. She was given a prescription of Zofran although she has a prescription this at home as well. She is given prescription of hydrocodone and took 1000 mg of ibuprofen just prior to arrival. Encouraged her to stay hydrated, return to the emergency department for any worsening of her symptoms, fever, chills, or any new changes that are concerning. She is given contact information for Dr. Gutierrez for follow-up in case she needs to see OBGYN. Patient is appropriate and amenable to discharge home. Vital signs are stable on repeat examination is unremarkable. Patient has been informed of results. Patient has been given strict return to ER precautions for any new or worsening symptoms. Patient understands to follow up closely with outpatient providers as instructed. Patient understands plan and agrees to discharge home. All questions and concerns answered at this time. <Slime Gallardo, DO - Last Filed: 04/14/22 07:53> Lab Data Labs: Lab Results 04/13/22 04/13/22 04/13/22 Range/Units 16:20 16:20 16:20 WBC 9.2 (4.5-11.0) X10^3/uL RBC 4.09 (4.0-5.2) X10^6/uL Hgb 11.9 L (12.0-16.0) g/dL Hct 34.8 L (36-46) % MCV 85.2 (80-100) fL MCH 29.2 (26-34) PG MCHC 34.3 (30-36) % RDW 13.7 (11.6-14.8) % Plt Count 221 (150-400) X10^3/uL Neut % (Auto) 77.3 H (50-75) % Lymph % (Auto) 16.6 L (25-40) % [place] % (Auto) 4.2 (3-14) % Eos % (Auto) 0.9 L (2-4) % Baso % (Auto) 1.0 (0-2) % Neut # (Auto) 7100 H (1488-5779) /uL Lymph # (Auto) 1500 (3458-5209) /uL [place] # (Auto) 400 (0-900) /uL Eos # (Auto) 100 (0-450) /uL Baso # (Auto) 100 (0-100) /uL Sodium 138 (137-145) mmol/L Potassium 4.1 (3.4-5.1) mmol/L Chloride 106 (98-107) mmol/L Carbon Dioxide 23 (22-32) mmol/L BUN 9 (7-17) mg/dL Creatinine 0.73 (0.52-1.04) mg/dL Estimated GFR > 60 (>60) mL/min BUN/Creatinine Ratio 12.3 (6-22) Glucose 89 (70-100) mg/dL Calcium 8.8 (8.4-10.2) mg/dL Magnesium (1.6-2.3) mg/dL Total Bilirubin 0.2 (0.2-1.3) mg/dL AST 23 (14-36) IU/L ALT 14 (<35) IU/L Alkaline Phosphatase 57 (38-126) U/L Total Protein 7.5 (6.3-8.2) g/dL Albumin 4.5 (3.5-5.0) g/dL Globulin 3.0 (1.7-4.1) g/dL Albumin/Globulin Ratio 1.5 (1.0-2.8) HCG, Quant 4234 mIU/mL Urine RBC (0-5/HPF) Urine WBC (0-5/HPF) Ur Squamous Epith Cells (0-5/HPF) Ur Transition Epith Cell (0-5/HPF) Urine Bacteria (None) Ur Culture Indicated? Micro UA Comment Blood Type Cancelled Antibody Screen 04/13/22 04/13/22 04/13/22 Range/Units 16:20 16:20 16:48 WBC (4.5-11.0) X10^3/uL RBC (4.0-5.2) X10^6/uL Hgb (12.0-16.0) g/dL Hct (36-46) % MCV (80-100) fL MCH (26-34) PG MCHC (30-36) % RDW (11.6-14.8) % Plt Count (150-400) X10^3/uL Neut % (Auto) (50-75) % Lymph % (Auto) (25-40) % [place] % (Auto) (3-14) % Eos % (Auto) (2-4) % Baso % (Auto) (0-2) % Neut # (Auto) (5161-1772) /uL Lymph # (Auto) (9202-8371) /uL [place] # (Auto) (0-900) /uL Eos # (Auto) (0-450) /uL Baso # (Auto) (0-100) /uL Sodium (137-145) mmol/L Potassium (3.4-5.1) mmol/L Chloride (98-107) mmol/L Carbon Dioxide (22-32) mmol/L BUN (7-17) mg/dL Creatinine (0.52-1.04) mg/dL Estimated GFR (>60) mL/min BUN/Creatinine Ratio (6-22) Glucose (70-100) mg/dL Calcium (8.4-10.2) mg/dL Magnesium 1.6 (1.6-2.3) mg/dL Total Bilirubin (0.2-1.3) mg/dL AST (14-36) IU/L ALT (<35) IU/L Alkaline Phosphatase (38-126) U/L Total Protein (6.3-8.2) g/dL Albumin (3.5-5.0) g/dL Globulin (1.7-4.1) g/dL Albumin/Globulin Ratio (1.0-2.8) HCG, Quant mIU/mL Urine RBC >100/hpf H (0-5/HPF) Urine WBC 10-30/hpf H (0-5/HPF) Ur Squamous Epith Cells 1-5 /hpf (0-5/HPF) Ur Transition Epith Cell 1-5/hpf (0-5/HPF) Urine Bacteria Few (2-10) H (None) Ur Culture Indicated? Culture not indicate Micro UA Comment Cx ordered Blood Type O Positive Antibody Screen Negative Urine Dip Bedside Urine Glucose Negative Bedside Urine Bilirubin - Negative Bedside Urine Ketone - Negative Urine Specific [place] 1.025 Bedside Urine Occult Blood +++ Bedside Urine pH 6.0 Bedside Urine Protein + 30 Bedside Urine Urobilinogen - Negative Bedside Urine Nitrite - Negative Bedside Urine Leukocytes +/- 15 Esterase Discharge Plan Departure Patient Disposition: Home Clinical Impression: Activity Restrictions/Additional Instructions: *You have been diagnosed with an in progress. Your ultrasound does not show any intrauterine . Your ultrasound does not show any free abdominal or pelvic fluid which is good news, there are no masses of your uterus and no intrauterine gestational sac. You might have a corpus luteal cyst within the left ovary but this might not cause any symptoms and your right ovary appears normal on ultrasound. Please follow-up with your doctors as needed, you can make an appointment with Dr. Gutierrez who is one of our OBGYN for follow-up if you choose. Please continue to treat your pain with anti-inflammatories, rest, warm compresses, hydration and return to the emergency department if you have any pain out of proportion, or a significant other symptom of concern. I hope you feel better soon. *What to do: *Please continue to take your regular medications as directed. [ x] New medication prescriptions sent to your pharmacy: [[facility] ] [ ] New medication written as a paper prescription [] No new medications given *Please follow up with your primary care provider in 2-3 days, call for an appointment. Let them know you were seen in the Emergency Department and that we asked that you be seen for follow-up. We will electronically transmit a record of today's note if your PCP is in our system *If you do not have a primary care provider please contact [phone] to establish care with one of the [facility] primary care providers. *Return to Emergency Department if you should have any new, worsening or concerning symptoms, such as [fever greater than 101F, chills, worsening pain, persistent vomiting or other bothersome symptoms] Prescriptions: New hydrocodone-acetaminophen 5-325 mg tablet 1 tab PO DAILY PRN (Reason: pain) Qty: 10 0RF ondansetron 4 mg tablet,disintegrating 4 mg PO Q8H Qty: 10 0RF No Action meloxicam 7.5 mg tablet 7.5 mg PO BID PRN (Reason: pain) Qty: 10 0RF Referrals: Deborah Gutierrez MD [Physician] - Visit Report Forms: Patient Portal/API <Slime Gallardo DO - Last Filed: 04/14/22 07:53> Cosign ED Attending Taylor Attestation: I was immediately available in the department for consultation. Documentation has been reviewed. I agree with assessment and plan.
[2022-04-13 17:21] LABS: HCG Quantitative /Beta subunit 4234 mIU/mL
[2022-04-13 17:22] LABS: Magnesium 1.6 mg/dL (1.6-2.3)
[2022-04-13 17:55] LABS: Bacteria Urine Few (2-10); RBC Urine >100/HPF (0-5/HPF); Squamous Epithelial Cell Urine 1-5 /HPF (0-5/HPF); Transitional Epi Cells Urine 1-5/HPF (0-5/HPF); Urine Comments CX ORDERED; WBC Urine 10-30/HPF (0-5/HPF)
[2022-04-13] MEDS: OXYCODONE IR 5 MG TABLET PO (18:43)
[2022-04-13 19:38] VITALS: BP 136/74; PULSE 76; RESP 16
== END 2022-04-13 19:39 | disposition home or self-care (01) ==
PROVIDERS: Emergency Medicine; Emergency Provider Nurse Practitioner Critical Care Medicine
DX: O03.9 Complete or unspecified spontaneous abortion without complication (principal)
CPT/HCPCS: 36415; 76830; 76856; 80053; 81003; 81015; 83735; 84702; 85025; 86850; 86900; 86901; 87086; 96361; 96374; 99284; J2405

== ENCOUNTER 2022-07-24 08:55 | Emergency (ER) | payer OTHER, SELFPAY ==
[2022-07-24] VITALS (9 sets, daily range): BP systolic 120–124; BP diastolic 68–73; PULSE 51–68; RESP 18; TEMP 36.7; O2SAT 98–100; BMI 31.1
[2022-07-24] MEDS: METOCLOPRAMIDE 10 MG/2 ML INJ IV (10:51)
[2022-07-24] MEDS: KETOROLAC 30 MG/ML VIAL 15 MG IV (10:51)
[2022-07-24] MEDS: SODIUM CHLORIDE 0.9% 1,000 ML 1000 ML IV (10:52)
[2022-07-24 11:00] LABS: Pregnancy Test Urine Negative (Negative)
--- NOTE | 2022-07-24 11:03 | ED_ITS ---
HPI - Headache General Chief Complaint: Headache Stated Complaint: vomiting and migrane Time Seen by Provider: 07/24/22 10:27 Source: patient Mode of arrival: Ambulatory Limitations: no limitations History of Present Illness HPI Narrative: This is a history of headaches/migraines. Patient states she usually takes Tylenol which is helpful. She states her headache started last night she describes it as fairly quick onset same location but extending a little farther out but much more intense than past episodes. She describes mild photophobia, sound bothers her somewhat. She denies any neck or back pain. No chest pain or shortness of breath. She started developing nausea and vomiting this morning. Patient denies any numbness, tingling weakness, no difficulty with movement or gait. She denies any fevers. She denies any vision changes. She denies any speech difficulties. She has never seen a neurologist for her headaches. She states she is allergic to penicillin. Denies Tobacco, alcohol or illicit. Related Data Previous Rx's Medication Instructions Recorded meloxicam 7.5 mg tablet 7.5 mg PO BID PRN pain #10 tabs 10/24/21 hydrocodone 5 mg-acetaminophen 325 1 tab PO DAILY PRN pain #10 tabs 04/13/22 mg tablet ondansetron 4 mg disintegrating 4 mg PO Q8H #10 tabs 04/13/22 tablet Allergies Allergy/AdvReac Type Severity Reaction Status Date / Time Penicillins Allergy Verified 07/24/22 09:22 Review of Systems Review of Systems ROS Unobtainable: All systems reviewed & are unremarkable except as noted in HPI and below Patient History Social History Smoking Status: Never smoker Smoking Status: Never smoker Substance Use Type: does not use Exam Narrative Exam Narrative: GEN: well nourished, well appearing female, alert and oriented x 3, patient appears to be in epoj-tn-rbjclloc distress. HEENT: Atraumatic, pupils are equal round reactive to light, mild photophobia, extraocular movements are intact, nares are clear, TMs are clear with no fluid, there is no conjunctival pallor. Throat is clear without any exudates, erythema, tonsillar enlargement or uvular deviation, no facial droop. No meningeal signs. HEART: Regular rate and rhythm without murmur, clicks, rubs. No carotid bruits, pulses are equal in upper and lower extremities LUNGS:Lungs clear to auscultation, no wheezes, rales, crackles, chest moves symmetrically ABD:bowel sounds normal, soft, non-tender, no guarding, rebound, rigidity, no ma sses noted, no hepatosplenomegaly :No CVA tenderness MSCL: Non-tender, no muscle atrophy, muscles strength 5/5 upper and lower extremities, full range of motion, normal gait NEURO:CN 2-12 intact, sensation normal SKIN: No rash, erythema or other skin changes Initial Vital Signs Initial Vital Signs: Vital Signs Pulse Rate 68 07/24/22 09:08 Pulse Oximetry 98 07/24/22 09:08 Scores GCS [place] coma scale eye opening: Spontaneous [place] coma scale verbal response: Orientated [place] coma scale motor response: Obey commands [place] coma scale total score: 15 Course Orders Ordered: ED Orders 07/24/22 10:43 Test Urine Stat Urinalysis and Microscopic Stat Urine Culture Stat 07/24/22 11:27 CT angio head and neck Stat CT head/brain wo con Stat Discontinued Medications Sodium Chloride (Normal Saline 0.9%) 1,000 mls @ 1,000 mls/hr IV BOLUS ONE Stop: 07/24/22 11:26 Last Infusion: 07/24/22 11:56 Dose: 0 mls/hr Documented By: Admin: 07/24/22 10:52 Dose: 1,000 mls/hr Documented By: CTS Ketorolac Tromethamine (Ketorolac 30 Mg/Ml Vial) 15 mg IV NOW ONE Stop: 07/24/22 10:28 Last Admin: 07/24/22 10:51 Dose: 15 mg Documented By: CTS Metoclopramide HCl (Metoclopramide 10 Mg/2 Ml Inj) 10 mg IV NOW ONE Stop: 07/24/22 10:28 Last Admin: 07/24/22 10:51 Dose: 10 mg Documented By: CTS Morphine Sulfate (Morphine 4 Mg/Ml Inj) 4 mg IV NOW ONE Stop: 07/24/22 11:28 Last Admin: 07/24/22 11:58 Dose: 4 mg Documented By: CTS Reevaluation(s) Reevaluation #1: Patient is feeling improved. Requesting to be discharged reviewed her findings today. Discussed return precautions. She did ask for a work note. Time: 13:11 Vital Signs Vital signs: Vital Signs - 8 hr 07/24/22 09:18 07/24/22 09:19 07/24/22 09:08 Temperature 98.0 F 98.0 F Pulse Rate 62 62 68 Respiratory Rate 18 Blood Pressure 124/68 124/68 Pulse Oximetry 99 98 98 Oxygen Delivery Method Room Air Room Air 07/24/22 09:09 07/24/22 09:09 07/24/22 09:30 Temperature Pulse Rate 65 Respiratory Rate Blood Pressure 124/68 120/73 Pulse Oximetry 98 Oxygen Delivery Method 07/24/22 09:30 07/24/22 10:00 07/24/22 10:30 Temperature Pulse Rate 68 55 L 64 Respiratory Rate Blood Pressure Pulse Oximetry 98 99 100 Oxygen Delivery Method Room Air 07/24/22 11:00 07/24/22 11:30 Temperature Pulse Rate 51 L 59 L Respiratory Rate Blood Pressure Pulse Oximetry 100 100 Oxygen Delivery Method Room Air MDM - Headache Lab Data Result diagrams: 07/24/22 09:43 07/24/22 09:43 Labs: Lab Results 07/24/22 07/24/22 07/24/22 Range/Units 09:43 09:43 09:43 WBC 7.7 (4.5-11.0) X10^3/uL RBC 4.07 (4.0-5.2) X10^6/uL Hgb 11.9 L (12.0-16.0) g/dL Hct 35.7 L (36-46) % MCV 87.6 (80-100) fL MCH 29.2 (26-34) PG MCHC 33.4 (30-36) % RDW 13.4 (11.6-14.8) % Plt Count 204 (150-400) X10^3/uL Neut % (Auto) 69.2 (50-75) % Lymph % (Auto) 22.1 L (25-40) % [place] % (Auto) 6.0 (3-14) % Eos % (Auto) 1.9 L (2-4) % Baso % (Auto) 0.8 (0-2) % Neut # (Auto) 5300 (6650-8756) /uL Lymph # (Auto) 1700 (0155-6375) /uL [place] # (Auto) 500 (0-900) /uL Eos # (Auto) 100 (0-450) /uL Baso # (Auto) 100 (0-100) /uL PT 11.9 (10.1-12.7) SECONDS INR 1.0 (0.9-1.3) APTT 33 (26-36) SECONDS Sodium 138 (137-145) mmol/L Potassium 3.9 (3.4-5.1) mmol/L Chloride 104 (98-107) mmol/L Carbon Dioxide 24 (22-32) mmol/L BUN 12 (7-17) mg/dL Creatinine 0.76 (0.52-1.04) mg/dL Estimated GFR > 60 (>60) mL/min BUN/Creatinine Ratio 15.8 (6-22) Glucose 89 (70-100) mg/dL Calcium 8.9 (8.4-10.2) mg/dL Total Bilirubin 0.3 (0.2-1.3) mg/dL AST 33 (14-36) IU/L ALT 12 (<35) IU/L Alkaline Phosphatase 59 (38-126) U/L Total Protein 7.5 (6.3-8.2) g/dL Albumin 4.5 (3.5-5.0) g/dL Globulin 3.0 (1.7-4.1) g/dL Albumin/Globulin Ratio 1.5 (1.0-2.8) Urine Color Urine Appearance Urine pH (4.5-8.0) Ur Specific [place] (1.000-1.035) Urine Protein (Negative) Urine Glucose (UA) (Negative) g/dL Urine Ketones (NEGATIVE) Urine Occult Blood (Negative) Urine Nitrate (Negative) Urine Bilirubin (NEGATIVE) Urine Urobilinogen (0.2) E.U./dL Ur Leukocyte Esterase (NEGATIVE) Urine RBC (0-5/HPF) Urine WBC (0-5/HPF) Ur Squamous Epith Cells (0-5/HPF) Urine Bacteria (None) Ur Culture Indicated? Urine Test (Negative) 07/24/22 07/24/22 Range/Units 10:43 10:43 WBC (4.5-11.0) X10^3/uL RBC (4.0-5.2) X10^6/uL Hgb (12.0-16.0) g/dL Hct (36-46) % MCV (80-100) fL MCH (26-34) PG MCHC (30-36) % RDW (11.6-14.8) % Plt Count (150-400) X10^3/uL Neut % (Auto) (50-75) % Lymph % (Auto) (25-40) % [place] % (Auto) (3-14) % Eos % (Auto) (2-4) % Baso % (Auto) (0-2) % Neut # (Auto) (6461-3332) /uL Lymph # (Auto) (1157-3703) /uL [place] # (Auto) (0-900) /uL Eos # (Auto) (0-450) /uL Baso # (Auto) (0-100) /uL PT (10.1-12.7) SECONDS INR (0.9-1.3) APTT (26-36) SECONDS Sodium (137-145) mmol/L Potassium (3.4-5.1) mmol/L Chloride (98-107) mmol/L Carbon Dioxide (22-32) mmol/L BUN (7-17) mg/dL Creatinine (0.52-1.04) mg/dL Estimated GFR (>60) mL/min BUN/Creatinine Ratio (6-22) Glucose (70-100) mg/dL Calcium (8.4-10.2) mg/dL Total Bilirubin (0.2-1.3) mg/dL AST (14-36) IU/L ALT (<35) IU/L Alkaline Phosphatase (38-126) U/L Total Protein (6.3-8.2) g/dL Albumin (3.5-5.0) g/dL Globulin (1.7-4.1) g/dL Albumin/Globulin Ratio (1.0-2.8) Urine Color Yellow Urine Appearance Sl cloudy Urine pH 7.0 (4.5-8.0) Ur Specific [place] 1.005 (1.000-1.035) Urine Protein Negative (Negative) Urine Glucose (UA) Negative (Negative) g/dL Urine Ketones Negative (NEGATIVE) Urine Occult Blood 3+ H (Negative) Urine Nitrate Negative (Negative) Urine Bilirubin Negative (NEGATIVE) Urine Urobilinogen 0.2 (0.2) E.U./dL Ur Leukocyte Esterase 1+ H (NEGATIVE) Urine RBC 10-30/hpf H (0-5/HPF) Urine WBC 1-5/hpf (0-5/HPF) Ur Squamous Epith Cells 0-1 /hpf (0-5/HPF) Urine Bacteria None seen (None) Ur Culture Indicated? Specimen cultured Urine Test Negative (Negative) Imaging Data CTA - brain/neck: Radiologist's Impression: [address] [address] [address] Scan Report Signed Patient: Patricia Evans MR#: [id number] : 1995 Acct:[id number] Age/Sex: 27 / F Date of Service: 07/24/22 Loc: ED Accession Number: [id number] ?? Procedure: CT angio head and neck Ordering Provider: Zaira Farris D.O. PROCEDURE:? CT ANGIO HEAD AND NECK ? 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 TECHNIQUE:? Precontrast head CT images were artery performed and not repeated.? After the administration of intravenous contrast, 1 mm thick sections acquired from the aortic arch through the [place] of [place].? Post-contrast 4.5 mm thick sections then re- acquired from the foramen magnum to the vertex.? 3-dimensional wqizevx-fhwdcqmdz-xouqbwopdu (MIP) and/or volume rendering reformats were acquired of the central intracranial vasculature and neck separately. For radiation dose reduction, the following was used:? automated exposure control, adjustment of mA and/or kV according to patient size.? ? COMPARISON:? [facility], CT, CT HEAD/BRAIN WO CON, 07/24/2022, 11:47. ? FINDINGS:? Image quality:? Excellent.? ? BRAIN:? CSF spaces:? Ventricles are normal in size and shape.? Basal cisterns are patent.? No extra-axial fluid collections.? ? Brain:? No midline shift.? No intracranial bleeds or masses.? Evans-white matter interface appears intact.? ? Skull and face:? Calvarium and facial bones appear intact, without suspicious lesions.? Orbits appear normal.? ? Sinuses:? Sinuses and mastoids are clear.? ? HEAD CT ANGIOGRAPHY:? Anterior circulation:? Intracranial internal carotid arteries are normal in size and flow.? The flow within the paired anterior cerebral arteries is normal and symmetric.? The flow within the middle cerebral arteries is normal and symmetric.? The anterior communicating artery is seen.? No aneurysms are seen.? ? Posterior circulation:? Visualized portions of the vertebral arteries demonstrate normal caliber, and join to form a normal appearing basilar artery.? Flow within the posterior cerebral arteries is normal and symmetric.? No aneurysms are seen.? ? NECK CT ANGIOGRAPHY:? Carotid system:? The great vessels demonstrate a conventional anatomy as they arise from the aortic arch.? The origins of the common carotid arteries appear patent.? The common carotid arteries demonstrate normal caliber and courses.? The bifurcation regions are both widely patent.? The internal carotid arteries demonstrate normal calibers and courses.? ? Posterior circulation:? The origins of the vertebral arteries both appear widely patent.? The more superior extracranial portions of both vertebral arteries also demonstrate normal courses and calibers.? They join to form a normal appearing basilar artery.? ? Soft tissues:? Visualized neck soft tissues demonstrate no suspicious abnormalities.? ? Bones:? No suspicious bony lesions.? Visualized cervical spine appears normally aligned.? Focal C5-C6 degenerative change is noted. ? ? ? IMPRESSION:? No findings of intracranial aneurysm are seen. ? No significant intracranial arterial abnormality is seen.? ? Within the arteries of the neck, no hemodynamically significant stenosis can be seen. ? No findings of dissection are seen. ? To the limits of CT, no findings of masses or abnormal enhancement can be seen. ? ? ? Any quantitative measurements of stenosis were performed using NASCET criteria.? ? ? Dictated by: Kofi Adan M.D. on 07/24/2022 at 11:39 ? ? Approved by: Kofi Adan M.D. on 07/24/2022 at 11:42?? CT scan - head: Radiologist's Impression: Close Head/Neck CTA (Signed) Koif Adan - 07/24/[address] (Signed) Kofi Adan - 07/24/22 Pelvis Ultrasound (Signed) Stone Urbina - 04/13/22 Abdomen/Pelvis CT (Signed) Huan Crowley - 10/24/21 Launch?[address] [address] [address] Scan Report Signed Patient: Patricia Evans MR#: [id number] : 1995 Acct:[id number] Age/Sex: 27 / F Date of Service: 07/24/22 Loc: ED Accession Number: [id number] ?? Procedure: CT head/brain wo con Ordering Provider: Zaira Farris D.O. PROCEDURE:? CT HEAD/BRAIN WO CON ? 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 TECHNIQUE:? Noncontrast 4.5 mm thick angled axial sections acquired from the foramen magnum to the vertex, with coronal and sagittal reformats.? For radiation dose reduction, the following was used:? automated exposure control, adjustment of mA and/or kV according to patient size.? ? COMPARISON:? [facility], CT, CT ANGIO HEAD AND NECK, 07/24/2022, 11:47. ? FINDINGS:? Image quality:? Mild streak artifact can be seen through the skull base. ? CSF spaces:? Basal cisterns are patent.? No extra-axial fluid collections.? Ventricles are normal in size and shape.? ? Brain:? No midline shift.? No intracranial masses or hemorrhage.? Evans-white ma tter interface is normal.? ? Skull and face:? Calvarium and visualized facial bones are intact, without suspicious lesions.? ? Sinuses:? Visualized sinuses and mastoids are clear.? ? IMPRESSION:? No acute intracranial hemorrhage is seen.? ? Unremarkable intracranial study. ? ? Dictated by: Kofi Adan M.D. on 07/24/2022 at 11:29 ? ? Approved by: Kofi Adan M.D. on 07/24/2022 at 11:30?? ECG Data Attestation: I personally reviewed and interpreted this ECG as follows: MDM Narrative Medical decision making narrative: This is a 27-year-old female who presents with complaint of migraine worse than her typical. Patient states it was a little bit faster onset than normal began last night she started having vomiting today. She has not had any neurologic changes otherwise. Because of somewhat atypical presentation imaging was obtained. Patient does not have any infectious type symptoms. Patient had Toradol, Reglan and fluids with moderate improvement patient states nausea is helping. No active vomiting department had additional dose of pain medication and felt much better. Imaging does not show any acute changes. Discharge Plan Departure Patient Disposition: Home Clinical Impression: Migraine Instructions: DI for Migraine Activity Restrictions/Additional Instructions: Follow-up with your physician for recheck. Please return for rapidly worsening symptoms, fevers, sudden vision changes, sudden severe onset of headaches, persistent vomiting, new numbness, tingling weakness or other new or concerning changes. Prescriptions: No Action hydrocodone-acetaminophen 5-325 mg tablet 1 tab PO DAILY PRN (Reason: pain) Qty: 10 0RF ondansetron 4 mg tablet,disintegrating 4 mg PO Q8H Qty: 10 0RF meloxicam 7.5 mg tablet 7.5 mg PO BID PRN (Reason: pain) Qty: 10 0RF Stand Alone Forms: Work Release Note Visit Report Forms: Patient Portal/API
[2022-07-24 11:13] LABS: Appearance Urine UA SL CLOUDY; Color Urine UA YELLOW
[2022-07-24 11:14] LABS: Bacteria Urine None Seen; Bilirubin Urine UA Negative (NEGATIVE); Glucose Urine UA NEGATIVE (Negative); Ketones Urine UA NEGATIVE (NEGATIVE); Leukocyte Esterase Urine UA 1+ (NEGATIVE); Nitrite Urine UA NEGATIVE (Negative); Occult Blood Urine UA 3+ (Negative); Protein Urine UA Negative (Negative); RBC Urine 10-30/HPF (0-5/HPF); Specific Gravity Urine UA 1.005 (1.000-1.035); Squamous Epithelial Cell Urine 0-1 /HPF (0-5/HPF); Urobilinogen Urine UA 0.2 E.U./dL (0.2); WBC Urine 1-5/HPF (0-5/HPF)
[2022-07-24 11:15] LABS: Culture Indicated Urine Specimen Cultured
--- NOTE | 2022-07-24 11:27 | DI.CT.S_ITS ---
PROCEDURE: CT HEAD/BRAIN WO CON INDICATIONS: carpenter, different from migraine TECHNIQUE: Noncontrast 4.5 mm thick angled axial sections acquired from the foramen magnum to the vertex, with coronal and sagittal reformats. For radiation dose reduction, the following was used: automated exposure control, adjustment of mA and/or kV according to patient size. COMPARISON: [facility], CT, CT ANGIO HEAD AND NECK, 07/24/2022, 11:47. FINDINGS: Image quality: Mild streak artifact can be seen through the skull base. CSF spaces: Basal cisterns are patent. No extra-axial fluid collections. Ventricles are normal in size and shape. Brain: No midline shift. No intracranial masses or hemorrhage. Evans-white matter interface is normal. Skull and face: Calvarium and visualized facial bones are intact, without suspicious lesions. Sinuses: Visualized sinuses and mastoids are clear. IMPRESSION: No acute intracranial hemorrhage is seen. Unremarkable intracranial study. Dictated by: Kofi Adan M.D. on 07/24/2022 at 11:29 Approved by: Kofi Adan M.D. on 07/24/2022 at 11:30
--- NOTE | 2022-07-24 11:27 | DI.CT.S_ITS ---
PROCEDURE: CT ANGIO HEAD AND NECK INDICATIONS: carpenter, different from migraine TECHNIQUE: Precontrast head CT images were artery performed and not repeated. After the administration of intravenous contrast, 1 mm thick sections acquired from the aortic arch through the [place] of [place]. Post-contrast 4.5 mm thick sections then re-acquired from the foramen magnum to the vertex. 3-dimensional rwnmftf-txoazfcfs-lhdqzhjwbt (MIP) and/or volume rendering reformats were acquired of the central intracranial vasculature and neck separately. For radiation dose reduction, the following was used: automated exposure control, adjustment of mA and/or kV according to patient size. COMPARISON: [facility], CT, CT HEAD/BRAIN WO CON, 07/24/2022, 11:47. FINDINGS: Image quality: Excellent. BRAIN: CSF spaces: Ventricles are normal in size and shape. Basal cisterns are patent. No extra-axial fluid collections. Brain: No midline shift. No intracranial bleeds or masses. Evans-white matter interface appears intact. Skull and face: Calvarium and facial bones appear intact, without suspicious lesions. Orbits appear normal. Sinuses: Sinuses and mastoids are clear. HEAD CT ANGIOGRAPHY: Anterior circulation: Intracranial internal carotid arteries are normal in size and flow. The flow within the paired anterior cerebral arteries is normal and symmetric. The flow within the middle cerebral arteries is normal and symmetric. The anterior communicating artery is seen. No aneurysms are seen. Posterior circulation: Visualized portions of the vertebral arteries demonstrate normal caliber, and join to form a normal appearing basilar artery. Flow within the posterior cerebral arteries is normal and symmetric. No aneurysms are seen. NECK CT ANGIOGRAPHY: Carotid system: The great vessels demonstrate a conventional anatomy as they arise from the aortic arch. The origins of the common carotid arteries appear patent. The common carotid arteries demonstrate normal caliber and courses. The bifurcation regions are both widely patent. The internal carotid arteries demonstrate normal calibers and courses. Posterior circulation: The origins of the vertebral arteries both appear widely patent. The more superior extracranial portions of both vertebral arteries also demonstrate normal courses and calibers. They join to form a normal appearing basilar artery. Soft tissues: Visualized neck soft tissues demonstrate no suspicious abnormalities. Bones: No suspicious bony lesions. Visualized cervical spine appears normally aligned. Focal C5-C6 degenerative change is noted. IMPRESSION: No findings of intracranial aneurysm are seen. No significant intracranial arterial abnormality is seen. Within the arteries of the neck, no hemodynamically significant stenosis can be seen. No findings of dissection are seen. To the limits of CT, no findings of masses or abnormal enhancement can be seen. Any quantitative measurements of stenosis were performed using NASCET criteria. Dictated by: Kofi Adan M.D. on 07/24/2022 at 11:39 Approved by: Kofi Adan M.D. on 07/24/2022 at 11:42
[2022-07-24 11:34] LABS: Add Manual Diff / Slide Review NO; Basophils Absolute Auto 100 /uL (0-100); Basophils Percent Auto 0.8 % (0-2); Eosinophils Absolute Auto 100 /uL (0-450); Eosinophils Percent Auto 1.9 % (2-4); Hematocrit 35.7 % (36-46); Hemoglobin 11.9 g/dL (12.0-16.0); Lymphocytes Absolute Auto 1700 /uL (1100-4500); Lymphocytes Percent Auto 22.1 % (25-40); Mean Corpuscular HGB Conc 33.4 % (30-36); Mean Corpuscular Hemoglobin 29.2 PG (26-34); Mean Corpuscular Volume 87.6 fL (80-100); Monocytes Absolute Auto 500 /uL (0-900); Neutrophils Absolute Auto 5300 /uL (1500-7000); Neutrophils Percent Auto 69.2 % (50-75); Platelet Count 204 X10^3/uL (150-400); Red Blood Cell Count 4.07 X10^6/uL (4.0-5.2); Red Cell Distribution Width 13.4 % (11.6-14.8); White Blood Cell Count 7.7 X10^3/uL (4.5-11.0)
[2022-07-24 11:36] LABS: Prothrombin Time 11.9 SECONDS (10.1-12.7)
[2022-07-24 11:39] LABS: PTT Partial Thromboplastin Tim 33 SECONDS (26-36)
[2022-07-24 11:40] LABS: Alanine Aminotransferase 12 IU/L (<35); Albumin 4.5 g/dL (3.5-5.0); Albumin Globulin Ratio 1.5 (1.0-2.8); Alkaline Phosphatase 59 U/L (38-126); Aspartate Aminotransferase 33 IU/L (14-36); BUN Creatinine Ratio 15.8 (6-22); Bilirubin Total 0.3 mg/dL (0.2-1.3); Blood Urea Nitrogen 12 mg/dL (7-17); Calcium 8.9 mg/dL (8.4-10.2); Carbon Dioxide 24 mmol/L (22-32); Chloride 104 mmol/L (98-107); Estimated Glomerular Filt Rate > 60 mL/min (>60); Glucose 89 mg/dL (70-100); HEMOLYSIS < 15 (0-50); Potassium 3.9 mmol/L (3.4-5.1); Sodium 138 mmol/L (137-145); Total Protein 7.5 g/dL (6.3-8.2)
[2022-07-24] MEDS: MORPHINE 4 MG/ML INJ IV (11:58)
== END 2022-07-24 13:30 | disposition home or self-care (01) ==
PROVIDERS: Emergency Provider Emergency Medicine
DX: G43.909 Migraine, unspecified, not intractable, without status migrainosus (principal); R11.2 Nausea with vomiting, unspecified
CPT/HCPCS: 70450; 70496; 70498; 80053; 81001; 81025; 85025; 85610; 85730; 87086; 96361; 96374; 96375; 99283; 99284; J1885; J2270; J2765; Q9967

== ENCOUNTER 2022-11-05 15:37 | Emergency (ER) | payer OTHER, SELFPAY ==
[2022-11-05 16:10] VITALS: BP 121/71; PULSE 84; RESP 18; TEMP 36.6; O2SAT 100; BMI 32.9
--- NOTE | 2022-11-05 16:14 | DI.RAD.S_ITS ---
PROCEDURE: XR HAND RT MIN 3V INDICATIONS: fall TECHNIQUE: 3 views of the hand(s) acquired. COMPARISON: None. FINDINGS: Bones: No fractures or dislocations. Carpal bones are normally aligned. No suspicious bony lesions. Soft tissues: No suspicious soft tissue calcifications. IMPRESSION: No evidence acute bony abnormality of the right hand Dictated by: Bertrand Dickson M.D. on 11/05/2022 at 16:45 Approved by: Bertrand Dickson M.D. on 11/05/2022 at 16:46
--- NOTE | 2022-11-05 17:33 | ED_ITS ---
HPI - General Adult General Chief complaint: Extremity Injury, Upper Stated complaint: RT. HAND PAIN DO TO FALL Time Seen by Provider: 11/05/22 17:25 Source: patient Mode of arrival: Ambulatory Limitations: no limitations History of Present Illness HPI narrative: Patient is a 27-year-old female who approximately 10 days ago injured her right hand while at work. She is active duty [place]. A couple days later she injured it once again while at work. She has seen her medical department. Has not had any imaging studies. Was placed in a removable splint. She has continued to have discomfort was told to come to the emergency department. Related Data Previous Rx's Medication Instructions Recorded meloxicam 7.5 mg tablet 7.5 mg PO BID PRN pain #10 tabs 10/24/21 hydrocodone 5 mg-acetaminophen 325 1 tab PO DAILY PRN pain #10 tabs 04/13/22 mg tablet ondansetron 4 mg disintegrating 4 mg PO Q8H #10 tabs 04/13/22 tablet Allergies Allergy/AdvReac Type Severity Reaction Status Date / Time Penicillins AdvReac Intermediate Vomiting Verified 11/05/22 16:14 Review of Systems Musculoskeletal Musculoskeletal: Reports system reviewed and no additional complaints, except as documented Integumentary/Breasts Skin/Breast: Reports system reviewed and no additional complaints, except as documented Neurologic Neurologic: Reports system reviewed and no additional complaints, except as documented Patient History Social History Smoking Status: Never smoker Smoking Status: Never smoker alcohol intake frequency: 0-2 drinks per day Substance Use Type: does not use Exam Initial Vital Signs Initial Vital Signs: Vital Signs Temperature 97.9 F 11/05/22 16:10 Pulse Rate 84 11/05/22 16:10 Respiratory Rate 18 11/05/22 16:10 Blood Pressure 121/71 11/05/22 16:10 Pulse Oximetry 100 11/05/22 16:10 Oxygen Delivery Method 11/05/22 16:10 HENPR Head: normal to inspection and normocephalic Cardio Pulses: radial pulses present on the right Extrem Other: Patient does not have specific snuffbox tenderness but does have tenderness of the base of the thumb. She is no tenderness with axial loading of the thumb. She can flex at the IP joint and MCP joint. Her wrist is unremarkable. The rest of her fingers are unremarkable. Course Orders Ordered: ED Orders 11/05/22 16:14 XR hand RT min 3V Stat Vital Signs Vital signs: Vital Signs - 8 hr 11/05/22 16:10 Temperature 97.9 F Pulse Rate 84 Respiratory Rate 18 Blood Pressure 121/71 Pulse Oximetry 100 Oxygen Delivery Method Room Air Medical Decision Making Imaging Data Extremity x-ray #1: Radiologist's Impression: PROCEDURE:? XR HAND RT MIN 3V ? INDICATIONS:? fall ? TECHNIQUE:? 3 views of the hand(s) acquired.? ? COMPARISON:? None. ? FINDINGS:? ? Bones:? No fractures or dislocations.? Carpal bones are normally aligned.? No suspicious bony lesions.? ? Soft tissues:? No suspicious soft tissue calcifications.? ? ? IMPRESSION:? No evidence acute bony abnormality of the right hand MDM Narrative Medical decision making narrative: Patient is neurovascularly intact. She does have a removable thumb spica splint already which I told her that she can continue to wear if it does help her symptoms. X-ray does not show any signs of fracture. It has been 10 days since her injury so I have low concern for an occult fracture. She is not specifically have tenderness over the anatomic snuffbox. Will have her continue to take Tylenol and ibuprofen and talk with her medical department about the indications for referral to see Orthopedics. She was given return precautions. She expressed understanding and agreement. Discharge Plan Departure Patient Disposition: Home Clinical Impression: Hand pain, right Instructions: How To Perform RICE (Rest, Ice, Compress, Elevate) Activity Restrictions/Additional Instructions: I do recommend that you talk with your medical department about further workup and potentially needing to be seen by the orthopedic surgeons. You can use the wrist brace if that improves your symptoms. You can continue with Tylenol and Mobic. If you need more medications than that then you need to talk with your medical department. Any work-related restrictions will come from your medical department as well. Prescriptions: No Action hydrocodone-acetaminophen 5-325 mg tablet 1 tab PO DAILY PRN (Reason: pain) Qty: 10 0RF ondansetron 4 mg tablet,disintegrating 4 mg PO Q8H Qty: 10 0RF meloxicam 7.5 mg tablet 7.5 mg PO BID PRN (Reason: pain) Qty: 10 0RF Stand Alone Forms: Patient Portal/API
== END 2022-11-05 17:55 | disposition home or self-care (01) ==
PROVIDERS: Emergency Provider Emergency Medicine
DX: S69.91XA Unspecified injury of right wrist, hand and finger(s), initial encounter (principal); W18.30XA Fall on same level, unspecified, initial encounter
CPT/HCPCS: 73130; 99283

== ENCOUNTER 2023-03-25 15:53 | Emergency (ER) | payer OTHER, SELFPAY ==
[2023-03-25 16:02] VITALS: BP 128/79; PULSE 74; RESP 15; TEMP 36.6; O2SAT 96; BMI 33.3
--- NOTE | 2023-03-25 16:06 | DI.RAD.S_ITS ---
PROCEDURE: XR HAND RT MIN 3V INDICATIONS: pain swelling, new possible injury with old ligament injury TECHNIQUE: 3 views of the hand(s) acquired. COMPARISON: [facility], CR, XR HAND RT MIN 3V, 11/05/2022, 16:13. FINDINGS: Bones: No fractures or dislocations. Carpal bones are normally aligned. No suspicious bony lesions. Soft tissues: No suspicious soft tissue calcifications. IMPRESSION: No evidence acute bony abnormality. If clinical suspicion and/or symptoms persist, further assessment with repeat plain films, or advanced imaging (e.g., CT, MRI, or bone scan) may be helpful for further assessment. Dictated by: Bertrand Dickson M.D. on 03/25/2023 at 17:09 Approved by: Bertrand Dickson M.D. on 03/25/2023 at 17:10
--- NOTE | 2023-03-25 16:06 | DI.RAD.S_ITS ---
PROCEDURE: XR WRIST RT MIN 3V INDICATIONS: pain swelling, new possible injury with old ligament injury TECHNIQUE: 4 views of the wrist were acquired. COMPARISON: None. FINDINGS: Bones: No fractures or dislocations. No suspicious bony lesions. Scaphoid view: Intact Soft tissues: No suspicious soft tissue calcifications. IMPRESSION: No evidence acute bony abnormality. If clinical suspicion and/or symptoms persist, further assessment with repeat plain films, or advanced imaging (e.g., CT, MRI, or bone scan) may be helpful for further assessment. Dictated by: Bertrand Dickson M.D. on 03/25/2023 at 17:10 Approved by: Bertrand Dickson M.D. on 03/25/2023 at 17:10
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
--- NOTE | 2023-03-25 17:27 | PC.NURSE ---
seen and discharged by provider without RN involvement
== END 2023-03-25 17:28 | disposition home or self-care (01) ==
PROVIDERS: Emergency Provider Student in an Organized Health Care Education/Training Program
DX: S63.501A Unspecified sprain of right wrist, initial encounter (principal); S66.911A Strain of unspecified muscle, fascia and tendon at wrist and hand level, right hand, initial encounter; W18.30XA Fall on same level, unspecified, initial encounter
CPT/HCPCS: 73110; 73130; 99283

== ENCOUNTER 2023-04-20 17:43 | Emergency (ER) | payer OTHER, SELFPAY ==
[2023-04-20 17:46] VITALS: BP 121/67; PULSE 71; RESP 18; TEMP 36.7; O2SAT 99; BMI 25.8
--- NOTE | 2023-04-20 18:05 | ED_ITS ---
HPI - Headache General Chief Complaint: Headache Stated Complaint: Migraine, Vomiting Time Seen by Provider: 04/20/23 18:03 Mode of arrival: Ambulatory History of Present Illness HPI Narrative: 28F nonsmoker with a history of migraines presents with a typical JARA for her that started this morning. She states her migraines typically come on pretty quickly and are left frontal in nature. Her pain is 8/10 and left frontal. She states it is made worse by bright lights and loud noise and improves in a dark and quiet room. She states this is very typical for her prior migraines. She took an Excedrin earlier today and it did not help. She denies any trauma or i njury, takes no blood thinners, denies fever or chills and has no neck pain. She denies other neurologic symptoms such as blurred vision or trouble with speech. She is not dizzy or lightheaded. She denies numbness, tingling or weakness of her extremities. She denies any medication or dietary change and states that her migraines typically flare up based on where she is at in her cycle and this would be typical for her. Related Data Previous Rx's Medication Instructions Recorded meloxicam 7.5 mg tablet 7.5 mg PO BID PRN pain #10 tabs 10/24/21 hydrocodone 5 mg-acetaminophen 325 1 tab PO DAILY PRN pain #10 tabs 04/13/22 mg tablet ondansetron 4 mg disintegrating 4 mg PO Q8H #10 tabs 04/13/22 tablet Allergies Allergy/AdvReac Type Severity Reaction Status Date / Time coconut Allergy Severe Anaphylaxis Verified 03/25/23 16:05 Penicillins AdvReac Intermediate Vomiting Verified 11/05/22 16:14 Review of Systems Review of Systems Narrative: GENERAL: Denies chills, fatigue, malaise, fever, sweats. HEENT: Denies sinus pain, ear pain, sore throat, difficulty swallowing, dizziness. RESPIRATORY: Denies dyspnea, cough, wheezing, hemoptysis, sputum. CARDIOVASCULAR: Denies chest pain, palpitations, orthopnea, edema, GASTROINTESTINAL: Denies nausea, vomiting, abdominal pain, diarrhea, constipation, melena. : Denies dysuria, frequency, incontinence, hematuria, urinary retention. MUSCULOSKELETAL: denies weakness, joint pain, or bony pain SKIN: Denies rash, skin lesions, or other NEUROLOGIC: See HPI PSYCHIATRIC: No concerning psychosocial issues. 12 point review of systems is negative except for those stated above Patient History Social History Smoking Status: Never smoker Smoking Status: Never smoker alcohol intake frequency: 0-2 drinks per day Substance Use Type: does not use Exam Narrative Exam Narrative: GENERAL: [28] year old patient appears stated age. Well-developed patient, in mild distress. HEAD: Atraumatic. Normocephalic. EYES: Pupils equal round and reactive. Extraocular motions intact. No scleral icterus. No injection or drainage. ENT: Nose without bleeding, purulent drainage. Throat without erythema, tonsillar hypertrophy or exudate. Airway patent. NECK: Trachea midline. Non tender CARDIOVASCULAR: Regular rate and rhythm without murmurs, gallops, or rubs. RESPIRATORY: Clear to auscultation. Breath sounds equal bilaterally. No wheezes, rales, or rhonchi. GASTROINTESTINAL: Abdomen soft, non-tender, nondistended. EXTREMITIES: No edema or joint tenderness. BACK: Nontender without deformity or crepitance. No flank tenderness. NEURO: AOx3. SKIN: No rash or erythema of visible areas NIH Stroke Scale 1a. LOC: Patient is alert and keenly responsive (0) 1b. LOC Questions: Patient answers both LOC questions accurately (0) 1c. LOC Commands: Patient performs both tasks correctly (0) 2. Best Gaze: Normal (0) 3. Visual: No visual loss (0) 4. Facial palsy: Normal symmetrical movements (0) 5. Motor arm: No drift (0) 6. Motor leg: No drift (0) 7. Limb ataxia: Absent (0) 8. Sensory: Normal (0) 9. Best language: No aphasia; normal (0) 10. Dysarthria: Normal (0) 11. Extinction and inattention: No abnormality (0) NIHSS: 0 Initial Vital Signs Initial Vital Signs: Vital Signs Temperature 98.0 F 04/20/23 17:46 Pulse Rate 71 04/20/23 17:46 Respiratory Rate 18 04/20/23 17:46 Blood Pressure 121/67 04/20/23 17:46 Pulse Oximetry 99 04/20/23 17:46 Oxygen Delivery Method Room Air 04/20/23 17:46 Course Orders Ordered: ED Orders 04/20/23 18:10 Urine Microscopic Stat Ondansetron HCl (Ondansetron 4 Mg Odt) 4 mg SL NOW PRN PRN Reason: Nausea And Vomiting Ondansetron HCl (Ondansetron 4 Mg/2 Ml Inj) 4 mg IV NOW PRN PRN Reason: Nausea And Vomiting Last Admin: 04/20/23 18:35 Dose: 4 mg Documented By: Discontinued Medications Diphenhydramine HCl (Diphenhydramine 50 Mg/Ml Vial) 25 mg IV NOW ONE Stop: 04/20/23 18:07 Last Admin: 04/20/23 18:34 Dose: 25 mg Documented By: Sodium Chloride (Normal Saline 0.9%) 1,000 mls @ 1,000 mls/hr IV BOLUS ONE Stop: 04/20/23 19:05 Last Infusion: 04/20/23 19:19 Dose: 0 mls/hr Documented By: Admin: 04/20/23 18:34 Dose: 1,000 mls/hr Documented By: Ketorolac Tromethamine (Ketorolac 30 Mg/Ml Vial) 15 mg IV NOW ONE Stop: 04/20/23 18:20 Last Admin: 04/20/23 18:36 Dose: 15 mg Documented By: Prochlorperazine (Prochlorperazine 10 Mg/2 Ml Vial) 10 mg IV NOW ONE Stop: 04/20/23 18:07 Last Admin: 04/20/23 18:34 Dose: 10 mg Documented By: Reevaluation(s) Reevaluation #1: Patient with significant if not complete resolution symptoms after above-stated therapies Vital Signs Vital signs: Vital Signs - 8 hr 04/20/23 17:46 04/20/23 18:34 04/20/23 19:29 Temperature 98.0 F Pulse Rate 71 63 Respiratory Rate 18 Blood Pressure 121/67 116/64 119/65 Pulse Oximetry 99 Oxygen Delivery Method Room Air 04/20/23 19:30 04/20/23 19:30 Temperature Pulse Rate 84 Respiratory Rate 16 Blood Pressure 115/65 Pulse Oximetry 98 Oxygen Delivery Method Room Air MDM - Headache Lab Data Labs: Lab Results 04/20/23 Range/Units 18:10 Urine RBC None seen (0-5/HPF) Urine WBC 0-1/hpf (0-5/HPF) Ur Squamous Epith Cells 1-5 /hpf (0-5/HPF) Urine Bacteria Few (2-10) H (None) Urine Mucus 1+ H (Negative) Ur Culture Indicated? Cult not indicated Point of Care Testing Test Results Negative Urine Dip Bedside Urine Glucose Negative Bedside Urine Bilirubin - Negative Bedside Urine Ketone - Negative Bedside Urine Occult Blood - Negative Bedside Urine Protein + 30 Bedside Urine Urobilinogen - Negative Bedside Urine Nitrite - Negative Bedside Urine Leukocytes - Negative Esterase MDM Narrative Medical decision making narrative: CC: 28-year-old female with headache, history of migraines, typical in severity and location of prior migraines Complicating co-morbidities: History of migraines Data collected from: Patient Medical records reviewed: Prior notes reviewed in our EMR Headache considerations include, but not limited to: Subarachnoid hemorrhage, but unlikely as patient denies sudden onset of pain, not worst of life, or neck pain Meningitis considered, but thought unlikely given lack of Brudzinski's, Kernig's sign, altered mental status or fever Giant cell arteritis considered, but thought unlikely given lack of unilateral findings, pain in samaritan, vision change HTN Emergency considered, but thought unlikely given normal vitals Other serious diagnoses considered unlikely given lack of red flag findings such as sudden onset, increasing frequency, immunocompromise, systemic signs (fever, chills, stiff neck, or rash), focal neurologic findings, trauma, blood thinners, etc. Exam documented above, pertinent findings include: GCS 15, alert and oriented x3, NIH stroke scale 0 Scores Used: NIHSS 0 Treatments: Saline, toradol, compazine, bendaryl Reevaluations: Near complete resolution of symptoms Discussion: Patient with a left frontal headache starting this morning reminds her prior migraines. Multiple diagnoses considered as noted above, however no red flag findings noted. No trauma, no fever, no neck pain, no anticoagulants. No other neurologic symptoms. Impressive response to typical therapies for migraine. No indication for further workup, patient requesting discharge stating she no longer has symptoms. We discussed return precautions including but not limited to recurrence of pain, seizure, persistent vomiting, fever, neck pain or other concerning symptoms Disposition: see below, along with detailed discharge instructions that have been reviewed with patient as well as indications for ED re-evaluation and additional outpatient follow up Discharge Plan Departure Patient Disposition: Home Clinical Impression: Migraine Instructions: DI for Migraine Activity Restrictions/Additional Instructions: *You have been diagnosed with [ Headache ] *What to do: *Take medications as directed *Follow up with your primary care provider in 2-3 days, call for an appointment. Let them know you were seen in the Emergency Department and that we ask that you be seen in follow up *Return to ER if you should have any new, worsening or concerning symptoms, such as [ fever > 101F, neck pain or stiffness, vomiting, confusion, seizure, fo berta weakness, vision change, speech deficit or other concerning symptoms ] Prescriptions: No Action hydrocodone-acetaminophen 5-325 mg tablet 1 tab PO DAILY PRN (Reason: pain) Qty: 10 0RF ondansetron 4 mg tablet,disintegrating 4 mg PO Q8H Qty: 10 0RF meloxicam 7.5 mg tablet 7.5 mg PO BID PRN (Reason: pain) Qty: 10 0RF Stand Alone Forms: Patient Portal/API
[2023-04-20 18:34] VITALS: BP 116/64; PULSE 63
[2023-04-20] MEDS: SODIUM CHLORIDE 0.9% 1,000 ML 1000 ML IV (18:34)
[2023-04-20] MEDS: PROCHLORPERAZINE 10 MG/2 ML VIAL IV (18:34)
[2023-04-20] MEDS: diphenhydrAMINE 50 MG/ML VIAL 25 MG IV (18:34)
[2023-04-20] MEDS: ONDANSETRON 4 MG/2 ML INJ IV (18:35)
[2023-04-20] MEDS: KETOROLAC 30 MG/ML VIAL 15 MG IV (18:36)
[2023-04-20 19:23] LABS: Bacteria Urine Few (2-10); Culture Indicated Urine Cult Not Indicated; Mucus Urine 1+ (Negative); RBC Urine None Seen (0-5/HPF); Squamous Epithelial Cell Urine 1-5 /HPF (0-5/HPF); WBC Urine 0-1/HPF (0-5/HPF)
[2023-04-20 19:29] VITALS: BP 119/65
[2023-04-20 19:30] VITALS: BP 115/65; PULSE 84; RESP 16; O2SAT 98
== END 2023-04-20 20:20 | disposition home or self-care (01) ==
PROVIDERS: Emergency Provider Emergency Medicine
DX: G43.909 Migraine, unspecified, not intractable, without status migrainosus (principal)
CPT/HCPCS: 36415; 81003; 81015; 81025; 96361; 96374; 96375; 99284; J0780; J1200; J1885; J2405